=== PATIENT | female | born 1930 | race Caucasian/White ===

== ENCOUNTER → 2017-02-08 | Outpatient (CLI) | payer MEDICARE ==
[~2017-02-08] MED LIST: ALLOPURINOL100 MG PO; COLCHICINE0.6 MG PO; Ecotrin PO; FISH OIL 1,0001 EACH PO; FISH OIL300 MG PO; GLIMEPIRIDE4 MG PO; GLYNASE1.5 MG PO; INDAPAMIDE1.25 MG PO; IRBESARTAN150 MG PO; LO-DOSE ASPIRIN81 M1 PO; LOPRESSOR50 MG PO; METFORMIN HCL500 M1 PO; METFORMIN HCL500 MG PO; NORVASC5 MG PO; PRAVACHOL80 MG PO; TEKTURNA300 MG PO; VITAMIN D1000 UNIT PO; VITAMIN D400 UNI1 PO
== END | disposition home or self-care (01) ==
LOC: CDC 12:39
DX: D49.4 Neoplasm of unspecified behavior of bladder (principal); R31.0 Gross hematuria; I44.4 Left anterior fascicular block; R94.31 Abnormal electrocardiogram [ECG] [EKG]
CPT/HCPCS: 93000

== ENCOUNTER 2017-05-25 11:27 | Inpatient (IN) | payer OTHER, MEDICARE ==
[2017-05-25] VITALS (8 sets, daily range): BP systolic 114–151; BP diastolic 50–102
[~2017-05-25] VITALS: Ht 149.9 cm; Wt 67.2 kg
[~2017-05-25 11:27] MED LIST changes: +COLCHICINE0.6 M1 PO; -COLCHICINE0.6 MG PO; -VITAMIN D1000 UNIT PO; +VITAMIN D31000 UNI2 PO
[2017-05-25 12:54] LABS: BASOPHIL (%) 0.3 % (0-1); EOSINOPHIL (%) 0.5 % (0-5); EOSINOPHIL COUNT 0.1 K/uL (0-0.3); HEMATOCRIT 30.9 % (36.0-46.0); IMMATURE GRANULOCYTE (%) 0.6 % (0.0-0.7); LYMPHOCYTE (%) 16.9 % (15-42); LYMPHOCYTE COUNT 1.6 K/uL (1.0-2.8); MCH 31.2 PG (29.0-34.0); MCHC 32.4 G/DL (30.0-36.0); MCV 96.3 FL (83-99); MONOCYTE (%) 2.7 % (3-12); MONOCYTE COUNT 0.3 K/uL (0-0.8); NEUTROPHIL COUNT 7.4 K/uL (1.8-6.4); PLATELET COUNT 288 K/uL (156-360); RBC DIS.WIDTH-CV 13.9 % (11.8-14.6); RBC DIS.WIDTH-SD 49.1 % (39-53); RED BLOOD COUNT 3.21 M/uL (3.80-5.20); WHITE BLOOD COUNT 9.3 K/uL (4.1-10.2)
[2017-05-25 13:06] LABS: ALBUMIN 3.4 g/dL (3.2-4.8); CHLORIDE 111 mEq/L (99-109)
[2017-05-25 13:07] LABS: SODIUM 129 mEq/L (136-147)
[2017-05-25 13:09] LABS: GLUCOSE 393 mg/dL (70-99); TOTAL PROTEIN 6.5 g/dL (6.4-8.3)
[2017-05-25 13:11] LABS: TOTAL BILIRUBIN 0.3 mg/dL (0.0-1.0)
[2017-05-25 13:12] LABS: ALKALINE PHOSPHATASE 115 IU/L (3-129); CREATININE 2.5 mg/dL (0.6-1.3); GFR ESTIMATE (CALCULATED) 19 mL/min/
[2017-05-25 13:14] LABS: AST (GOT) 28 IU/L (2-34); UREA NITROGEN (BUN) 57 mg/dL (9-23)
[2017-05-25 13:16] LABS: POTASSIUM 9.1 mEq/L (3.7-5.4)
[2017-05-25 13:20] LABS: TROP-I INTERPRETATION NEGATIVE; TROPONIN-I 0.01 ng/mL (0.0-0.30)
[2017-05-25 13:44] LABS: ALT (GPT) 23 IU/L (3-49)
[2017-05-25] MEDS ORDERED: TYLENOL PM EX-1 EACH PO (14:49)
[2017-05-25] MEDS ORDERED: BACTRIM,SEPT1 TABLET PO (14:54)
[2017-05-25] MEDS ORDERED: eye drops BOTH EYES (14:55)
[2017-05-25] MEDS ORDERED: ALDACTONE25 MG PO (14:56)
[2017-05-25] MEDS ORDERED: [UNRECOGNIZED DRUG - REMARK] (14:57)
[2017-05-25 16:56] LABS: CHLORIDE 106 MEQ/L (99-109); CREATININE 2.3 MG/DL (0.6-1.3); GFR ESTIMATE (CALCULATED) 21 mL/min/; GLUCOSE 266 mg/dL (70-99); UREA NITROGEN (BUN) 60 mg/dL (9-23)
[2017-05-25 17:00] LABS: POTASSIUM 6.2 MEQ/L (3.7-5.4); SODIUM 137 MEQ/L (136-147)
[2017-05-25 17:54] LABS: APPEARANCE CLOUDY ((CLEAR)); BILIRUBIN NEGATIVE; BLOOD SMALL; COLOR YELLOW ((YELLOW)); GLUCOSE (STRIP) 50; KETONES NEGATIVE; LEUKOCYTES MODERATE; NITRITE NEGATIVE; PROTEIN (STRIP) 100; SPECIFIC GRAVITY 1.016 (1.000-1.030); UROBILINOGEN 0.2 MG/DL (0.2-1.0)
[2017-05-25 18:09] LABS: WHITE BLOOD CELLS 30-40 /HPF (0-5)
[2017-05-25 18:10] LABS: BACTERIA 1+ /HPF; EPITHELIAL CELLS RARE /HPF; HYALINE CASTS 0-5 /LPF; MUCUS NONE SEEN /LPF; UCUL ADDED? YES
[2017-05-25 18:28] LABS: CHLORIDE 108 MEQ/L (99-109); CREATININE 2.2 MG/DL (0.6-1.3); GFR ESTIMATE (CALCULATED) 23 mL/min/; GLUCOSE 176 mg/dL (70-99); POTASSIUM 5.9 MEQ/L (3.7-5.4); SODIUM 135 MEQ/L (136-147); UREA NITROGEN (BUN) 56 mg/dL (9-23)
[2017-05-25 21:47] LABS: CHLORIDE 107 MEQ/L (99-109); CREATININE 2.1 MG/DL (0.6-1.3); GFR ESTIMATE (CALCULATED) 24 mL/min/; SODIUM 136 MEQ/L (136-147); UREA NITROGEN (BUN) 53 mg/dL (9-23)
[2017-05-25 21:48] LABS: GLUCOSE 323 mg/dL (70-99); POTASSIUM 4.2 MEQ/L (3.7-5.4)
[2017-05-26] VITALS (12 sets, daily range): BP systolic 93–135; BP diastolic 41–61
[2017-05-26 00:07] LABS: CHLORIDE 104 mEq/L (99-109); POTASSIUM 4.2 mEq/L (3.7-5.4); SODIUM 135 mEq/L (136-147)
[2017-05-26 00:09] LABS: GLUCOSE 341 mg/dL (70-99)
[2017-05-26 00:13] LABS: CREATININE 2.1 mg/dL (0.6-1.3); GFR ESTIMATE (CALCULATED) 24 mL/min/
[2017-05-26 00:14] LABS: UREA NITROGEN (BUN) 49 mg/dL (9-23)
[2017-05-26 06:19] LABS: CHLORIDE 102 MEQ/L (99-109); CREATININE 1.8 MG/DL (0.6-1.3); GFR ESTIMATE (CALCULATED) 28 mL/min/; GLUCOSE 232 mg/dL (70-99); POTASSIUM 4.3 MEQ/L (3.7-5.4); SODIUM 137 MEQ/L (136-147); UREA NITROGEN (BUN) 45 mg/dL (9-23)
[2017-05-26 12:48] LABS: TROP-I INTERPRETATION POSITIVE; TROPONIN-I 19.38 ng/mL (0.0-0.30)
[2017-05-27] VITALS (7 sets, daily range): BP systolic 109–148; BP diastolic 57–69
[2017-05-27 06:13] LABS: ALBUMIN 3.3 G/DL (3.2-4.8); CHLORIDE 103 MEQ/L (99-109); CREATININE 1.4 MG/DL (0.6-1.3); GFR ESTIMATE (CALCULATED) 38 mL/min/; GLUCOSE 161 mg/dL (70-99); PHOSPHORUS 3.1 mg/dL (2.5-4.9); POTASSIUM 4.5 MEQ/L (3.7-5.4); SODIUM 137 MEQ/L (136-147); UREA NITROGEN (BUN) 30 mg/dL (9-23)
[2017-05-27 12:16] LABS: TROP-I INTERPRETATION POSITIVE
[2017-05-28 05:08] VITALS: BP 128/63
[2017-05-28 07:52] VITALS: BP 134/63
[2017-05-28 07:58] VITALS: BP 134/63
[2017-05-28 12:40] VITALS: BP 135/58
[2017-05-28 15:17] LABS: TROP-I INTERPRETATION POSITIVE; TROPONIN-I 9.57 ng/mL (0.0-0.30)
[2017-05-28 15:19] LABS: CHLORIDE 103 MEQ/L (99-109); CREATININE 1.4 MG/DL (0.6-1.3); GFR ESTIMATE (CALCULATED) 38 mL/min/; GLUCOSE 238 mg/dL (70-99); POTASSIUM 4.1 MEQ/L (3.7-5.4); SODIUM 136 MEQ/L (136-147); UREA NITROGEN (BUN) 26 mg/dL (9-23)
[2017-05-28 16:46] VITALS: BP 128/60
[2017-05-28 19:15] VITALS: BP 131/60
[2017-05-29] VITALS (7 sets, daily range): BP systolic 122–138; BP diastolic 60–68
[2017-05-29 09:31] LABS: CHLORIDE 103 MEQ/L (99-109); CREATININE 1.1 MG/DL (0.6-1.3); GFR ESTIMATE (CALCULATED) 50 mL/min/; GLUCOSE 183 mg/dL (70-99); POTASSIUM 4.6 MEQ/L (3.7-5.4); SODIUM 136 MEQ/L (136-147); UREA NITROGEN (BUN) 25 mg/dL (9-23)
[2017-05-30 03:20] VITALS: BP 130/78
[2017-05-30 05:48] LABS: CHLORIDE 105 MEQ/L (99-109); CREATININE 1.4 MG/DL (0.6-1.3); GFR ESTIMATE (CALCULATED) 38 mL/min/; GLUCOSE 124 mg/dL (70-99); POTASSIUM 4.8 MEQ/L (3.7-5.4); SODIUM 138 MEQ/L (136-147); UREA NITROGEN (BUN) 29 mg/dL (9-23)
[2017-05-30 06:53] VITALS: BP 134/60
[2017-05-30 16:07] VITALS: BP 136/68
[2017-05-30 18:45] VITALS: BP 141/62
[2017-05-30 23:02] VITALS: BP 99/51
[2017-05-31 03:15] VITALS: BP 106/58
[2017-05-31 07:10] VITALS: BP 124/62
[2017-05-31 07:21] LABS: CHLORIDE 104 MEQ/L (99-109); CREATININE 1.3 MG/DL (0.6-1.3); GFR ESTIMATE (CALCULATED) 41 mL/min/; GLUCOSE 146 mg/dL (70-99); POTASSIUM 5.1 MEQ/L (3.7-5.4); SODIUM 136 MEQ/L (136-147); UREA NITROGEN (BUN) 34 mg/dL (9-23)
[2017-05-31 10:52] VITALS: BP 121/58
[2017-05-31] MEDS ORDERED: ASPIRIN81 M2 PO (11:36)
[2017-05-31] MEDS ORDERED: NITROSTAT0.4 MG SL (11:36)
== END 2017-05-31 12:40 | disposition home health service (06) | DRG 682 ==
LOC: EME 11:27 → ENRESERV 14:57 → 4EAST 14:57 → EDOF 14:57 → 4WEST 14:57 → ENRESERV 15:24 → 4WEST 16:01 → ENRESERV 05-26 03:13 → 4EAST 05-26 07:35 → ENRESERV 05-30 13:24 → 2EAST 05-30 16:04
PROVIDERS: Emergency Medicine Emergency Medical Services; Hospitalist; Internal Medicine; Internal Medicine Cardiovascular Disease; Internal Medicine Critical Care Medicine; Internal Medicine Nephrology; Physician Assistant Medical
DX: N17.9 Acute kidney failure, unspecified (principal); I21.4 Non-ST elevation (NSTEMI) myocardial infarction; E86.0 Dehydration; I13.0 Hypertensive heart and chronic kidney disease with heart failure and stage 1 through stage 4 chronic kidney disease, or unspecified chronic kidney disease; I50.20 Unspecified systolic (congestive) heart failure; E11.22 Type 2 diabetes mellitus with diabetic chronic kidney disease; E78.5 Hyperlipidemia, unspecified; C67.9 Malignant neoplasm of bladder, unspecified; E86.1 Hypovolemia; E87.2 Acidosis; E87.5 Hyperkalemia; I08.0 Rheumatic disorders of both mitral and aortic valves; M10.9 Gout, unspecified; M19.90 Unspecified osteoarthritis, unspecified site; N18.9 Chronic kidney disease, unspecified; R33.9 Retention of urine, unspecified
CPT/HCPCS: 71010; 76770; 78452; 80048; 80048 91; 80053; 80069; 81003; 82947 91; 82948; 83880; 84484; 85025; 87040; 87086; 87493; 87506; 87641; 93005; 93017; 93306; 94640; 94644; 99281; 99285; A9500; J0610; J1940; J2060; J2785; J7040; J7050; J7070

== ENCOUNTER 2017-07-22 16:55 | Emergency (ER) | payer OTHER ==
[~2017-07-22] VITALS: Ht 149.9 cm; Wt 58.4 kg
[~2017-07-22 16:55] MED LIST changes: +ALDACTONE25 MG PO; +ASPIRIN81 M2 PO; +BACTRIM,SEPT1 TABLET PO; +NITROSTAT0.4 MG SL; +TYLENOL PM EX-1 EACH PO; +[UNRECOGNIZED DRUG - REMARK]; +eye drops BOTH EYES
[2017-07-22 17:57] LABS: APPEARANCE CLOUDY ((CLEAR)); COLOR RED ((YELLOW)); LEUKOCYTES MODERATE; NITRITE NEGATIVE; SPECIFIC GRAVITY 1.015 (1.000-1.030)
[2017-07-22 17:58] LABS: BILIRUBIN NEGATIVE; BLOOD LARGE; GLUCOSE (STRIP) TRACE; KETONES NEGATIVE; PROTEIN (STRIP) 100; UROBILINOGEN 0.2 MG/DL (0.2-1.0)
[2017-07-22 18:09] LABS: BACTERIA 3+ /HPF; EPITHELIAL CELLS 2+ /HPF; MUCUS 1+ /LPF; RED BLOOD CELLS TNTC /HPF (0-5)
[2017-07-22 19:10] LABS: HEMATOCRIT 36.1 % (36.0-46.0); HEMOGLOBIN 11.9 G/DL (11.9-15.5); MCH 30.6 PG (29.0-34.0); MCV 92.8 FL (83-99); PLATELET COUNT 217 K/uL (156-360); RBC DIS.WIDTH-CV 13.3 % (11.8-14.6); RBC DIS.WIDTH-SD 44.9 % (39-53); RED BLOOD COUNT 3.89 M/uL (3.80-5.20); WHITE BLOOD COUNT 7.2 K/uL (4.1-10.2)
[2017-07-22 19:19] LABS: CHLORIDE 105 mEq/L (99-109); POTASSIUM 4.2 mEq/L (3.7-5.4); SODIUM 139 mEq/L (136-147)
[2017-07-22 19:21] LABS: GLUCOSE 163 mg/dL (70-99)
[2017-07-22 19:25] LABS: GFR ESTIMATE (CALCULATED) 56 mL/min/
[2017-07-22 19:26] LABS: UREA NITROGEN (BUN) 22 mg/dL (9-23)
[2017-07-22] MEDS ORDERED: KEFLEX500 MG PO (21:28)
[2017-07-22 21:44] VITALS: BP 170/79
== END 2017-07-22 21:45 | disposition home or self-care (01) ==
LOC: EME 16:55
DX: N30.01 Acute cystitis with hematuria (principal); N93.9 Abnormal uterine and vaginal bleeding, unspecified; I10 Essential (primary) hypertension; Z85.51 Personal history of malignant neoplasm of bladder; I25.2 Old myocardial infarction; M10.9 Gout, unspecified; E78.5 Hyperlipidemia, unspecified; E11.9 Type 2 diabetes mellitus without complications; K21.9 Gastro-esophageal reflux disease without esophagitis; F41.9 Anxiety disorder, unspecified; J45.909 Unspecified asthma, uncomplicated; K57.32 Diverticulitis of large intestine without perforation or abscess without bleeding; Z90.49 Acquired absence of other specified parts of digestive tract; Z79.84 Long term (current) use of oral hypoglycemic drugs
CPT/HCPCS: 74177; 80048; 81003; 85027; 99281; 99284; J7030

== ENCOUNTER 2017-11-05 09:09 | Day surgery (SDC) | payer OTHER ==
[~2017-11-05] VITALS: Ht 149.9 cm; Wt 57.6 kg
[~2017-11-05 09:09] MED LIST changes: +AMOXICILLIN500 M1 PO; +IRON325 M1 PO; +KEFLEX500 MG PO
[2017-11-05 10:20] VITALS: BP 154/67
[2017-11-05 13:20] VITALS: BP 141/65
[2017-11-05 14:20] VITALS: BP 152/66
== END 2017-11-05 14:50 | disposition home or self-care (01) ==
LOC: SDC 09:09
PROVIDERS: Urology
PROC: 0TBB8ZX Excision of Bladder, Via Natural or Artificial Opening Endoscopic, Diagnostic (ICD-10-PCS; principal; 2017-11-05)
DX: C67.8 Malignant neoplasm of overlapping sites of bladder (principal); N30.20 Other chronic cystitis without hematuria; R33.9 Retention of urine, unspecified; I25.10 Atherosclerotic heart disease of native coronary artery without angina pectoris; I25.2 Old myocardial infarction; I10 Essential (primary) hypertension; E78.5 Hyperlipidemia, unspecified; E11.9 Type 2 diabetes mellitus without complications; Z90.49 Acquired absence of other specified parts of digestive tract; Z90.710 Acquired absence of both cervix and uterus; Z82.49 Family history of ischemic heart disease and other diseases of the circulatory system; Z79.82 Long term (current) use of aspirin; Z80.3 Family history of malignant neoplasm of breast; Z80.8 Family history of malignant neoplasm of other organs or systems; Z80.0 Family history of malignant neoplasm of digestive organs
CPT/HCPCS: 82948; 88307; J0461; J0690; J1100; J2405; J2710; J3010; J7643

== ENCOUNTER 2017-11-15 06:02 | Emergency (ER) | payer OTHER ==
[~2017-11-15] VITALS: Ht 152.4 cm; Wt 55.9 kg
[2017-11-15 06:39] LABS: HEMATOCRIT 35.4 % (36.0-46.0); HEMOGLOBIN 12.1 G/DL (11.9-15.5); MCH 31.8 PG (29.0-34.0); MCHC 34.2 G/DL (30.0-36.0); MCV 93.2 FL (83-99); PLATELET COUNT 214 K/uL (156-360); RBC DIS.WIDTH-CV 13.7 % (11.8-14.6); RBC DIS.WIDTH-SD 46.6 % (39-53); WHITE BLOOD COUNT 8.9 K/uL (4.1-10.2)
[2017-11-15 06:49] LABS: CHLORIDE 102 mEq/L (99-109); POTASSIUM 4.2 mEq/L (3.7-5.4); SODIUM 139 mEq/L (136-147)
[2017-11-15 06:51] LABS: GLUCOSE 218 mg/dL (70-99)
[2017-11-15 06:55] LABS: CREATININE 1.1 mg/dL (0.6-1.3); GFR ESTIMATE (CALCULATED) 50 mL/min/
[2017-11-15 06:56] LABS: UREA NITROGEN (BUN) 32 mg/dL (9-23)
[2017-11-15 07:00] LABS: TROP-I INTERPRETATION NEGATIVE; TROPONIN-I 0.03 ng/mL (0.0-0.30)
[2017-11-15 07:49] LABS: APPEARANCE CLOUDY ((CLEAR)); BILIRUBIN NEGATIVE; BLOOD LARGE; GLUCOSE (STRIP) NEGATIVE; KETONES NEGATIVE; LEUKOCYTES MODERATE; NITRITE NEGATIVE; PROTEIN (STRIP) >=500; SPECIFIC GRAVITY 1.011 (1.000-1.030); UROBILINOGEN 0.2 MG/DL (0.2-1.0)
[2017-11-15 07:50] LABS: COLOR LT.RED ((YELLOW))
[2017-11-15 08:33] LABS: BACTERIA 3+ /HPF; EPITHELIAL CELLS 1+ /HPF; MUCUS NONE SEEN /LPF; RED BLOOD CELLS TNTC /HPF (0-5); UCUL ADDED? YES; WHITE BLOOD CELLS 15-20 /HPF (0-5)
[2017-11-15 09:31] LABS: TROP-I INTERPRETATION NEGATIVE; TROPONIN-I 0.03 ng/mL (0.0-0.30)
[2017-11-15] MEDS ORDERED: CIPRO500 MG PO (10:24)
[2017-11-15 10:46] VITALS: BP 133/63
== END 2017-11-15 11:12 | disposition home or self-care (01) ==
LOC: EME 06:02
PROVIDERS: Emergency Medicine
DX: N39.0 Urinary tract infection, site not specified (principal); R07.89 Other chest pain; M54.6 Pain in thoracic spine; I25.2 Old myocardial infarction; I25.10 Atherosclerotic heart disease of native coronary artery without angina pectoris; J98.11 Atelectasis; I70.0 Atherosclerosis of aorta; E78.5 Hyperlipidemia, unspecified; I10 Essential (primary) hypertension; E11.9 Type 2 diabetes mellitus without complications; Z79.84 Long term (current) use of oral hypoglycemic drugs; Z90.49 Acquired absence of other specified parts of digestive tract; Z85.51 Personal history of malignant neoplasm of bladder
CPT/HCPCS: 71046; 71275; 80048; 81003; 84484; 85027; 85379; 87077; 87086; 87186; 93005; 99281; 99284; J7030